=== PATIENT | female | born 1950 | race Caucasian/White ===

== ENCOUNTER 2018-05-26 06:32 | Day surgery (SDC) | payer MEDICARE, BC ==
[2018-05-26] MEDS ORDERED: Lactated Ringers 1,000 ML IV SCH (07:00)
[2018-05-26] MEDS ORDERED: fentaNYL 100 MCG/2 ML SDV ONE (07:23)
[2018-05-26] MEDS ORDERED: Propofol 200 MG/20 ML SDV ONE (07:23)
[2018-05-26] MEDS ORDERED: Ondansetron 4 MG/2 ML SDV ONE (07:23)
--- NOTE | 2018-05-26 10:21 | OR ---
DATE OF PROCEDURE: 05/26/2018 PROCEDURES: 1. EGD. 2. Colonoscopy. FINDINGS: 1. Diverticulosis. 2. No other gross abnormalities, except for maybe mild reflux at GE junction. COMPLICATIONS: None. COOK BOX FILLER: None. PREOPERATIVE DIAGNOSIS: Abdominal bloating/abdominal pain. POSTOPERATIVE DIAGNOSIS: Abdominal bloating/abdominal pain. RISKS: Risks, benefits, alternatives, and limitations including, but not limited to infection, bleeding, and perforation were explained to the patient, who wished to proceed. PROCEDURE IN DETAIL: The patient was placed in left lateral decubitus position. The EGD scope was introduced and advanced atraumatically into the second part of the duodenum. No other abnormalities were noted. The GE junction did show some mild reflux. No hiatal hernia. No gastric ulcers. Esophagus was normal. A digital rectal exam was performed next. The scope was introduced and advanced atraumatically to the ileocecal valve. The scope was brought back to the ascending, transverse, descending colon, and retroflexed. The patient did have some diverticulosis. There was no evidence of old or new blood. No masses. No polyps. The diverticulosis would be described as mild and limited to sigmoid colon. No abnormalities on retroflexion. The patient tolerated the procedure well. Mohan Patterson MD /[id number]
== END 2018-05-26 10:32 | disposition home or self-care (01) ==
LOC: JP.SDS 06:32
PROVIDERS: ATTEND Surgery
PROC: 0DJD8ZZ Inspection of Lower Intestinal Tract, Via Natural or Artificial Opening Endoscopic (ICD-10-PCS; principal; 2018-05-26)
PROC: 0DJ08ZZ Inspection of Upper Intestinal Tract, Via Natural or Artificial Opening Endoscopic (ICD-10-PCS; 2018-05-26)
DX: K57.90 Diverticulosis of intestine, part unspecified, without perforation or abscess without bleeding (principal); R10.9 Unspecified abdominal pain; R14.0 Abdominal distension (gaseous)
CPT/HCPCS: 43235; 45378; J2405; J2704; J3010; J7120

== ENCOUNTER 2021-11-13 18:23 | Emergency (ER) | payer MEDICARE, BC ==
[2021-11-13] MEDS ORDERED: Sodium Chloride 0.9% 10 ML SDV FLUSH ONE (18:50)
[2021-11-13] MEDS ORDERED: Sodium Chloride 0.9% 100 ML IV SCH (19:00)
[2021-11-13] MEDS ORDERED: Iopamidol 755 Mg/ML 100 ML Bottle IV SCH (19:00)
--- NOTE | 2021-11-13 19:04 | EDM.PDOC ---
ED HPI GENERAL MEDICAL PROBLEM - General Chief Complaint: Neuro Symptoms/Deficits Stated Complaint: DIFFICULTY SPEAKING-POSSIBLE STROKE Time Seen by Provider: 11/13/21 18:30 Source of Information: Reports: Patient, Family History Limitations: Reports: No Limitations - History of Present Illness INITIAL COMMENTS - FREE TEXT/NARRATIVE: 71-year-old female with a remote history of migraines, but no other significant medical history was visiting with her [place] at supper and suddenly had expressive aphasia. She also developed a dull headache. No other symptoms, she can ambulate without problems, no peripheral weakness, no visual changes although she is nearly blind in 1 eye. No amnesia, her only symptom if she has to think as she is speaking in the word still are not coming out completely right. She has no dysarthria. Symptoms are improving however. Onset: Sudden Duration: Hour(s): (Within the last hour) Associated Symptoms: Reports: Headaches, Other (Expressive aphasia and headache are the only symptoms) - Related Data Allergies Allergy/AdvReac Type Severity Reaction Status Date / Time aspirin Allergy Hypertensio Verified 11/13/21 18:32 [From Darvon Compound-65] n caffeine Allergy Hypertensio Verified 11/13/21 18:32 [From Darvon Compound-65] n codeine Allergy Nausea and Verified 11/13/21 18:32 Vomiting ibuprofen Allergy Stomach Verified 11/13/21 18:32 Upset lorazepam [From Ativan] Allergy Lethargy Verified 11/13/21 18:32 meperidine HCl [From Demerol] Allergy Nausea and Verified 11/13/21 18:32 Vomiting naproxen Allergy Cannot Verified 11/13/21 18:32 Remember propoxyphene HCl Allergy Hypertensio Verified 11/13/21 18:32 [From Darvon Compound-65] n wheat Allergy Airway Verified 11/13/21 18:32 Tightness Home Meds: Home Meds Calcium Carb, Citrate/Vit D3 [Calcium + D3 ER Tablet] 800 - 1,000 mg PO DAILY 05/24/18 [History] Cholecalciferol (Vitamin D3) [Cholecalciferol] 1,000 unit PO DAILY 05/24/18 [History] EPINEPHrine [Epinephrine] 0.3 ml IM ASDIRECTED PRN 05/24/18 [History] Levothyroxine Sodium 88 mcg PO DAILY 05/24/18 [History] Omeprazole 40 mg PO DAILY 11/13/21 [History] Past Medical History HEENT History: Reports: Impaired Vision, Other (See Below) Other HEENT History: wears glasses; dry eyes Cardiovascular History: Reports: Angina, Arrhythmia, Heart Murmur, High Cholesterol Gastrointestinal History: Reports: Chronic Diarrhea, Gastritis, GERD, Hemorrhoids Genitourinary History: Reports: None INBOUND SALES REPRESENTATIVE History: Reports: Other (See Below) Other INBOUND SALES REPRESENTATIVE History: 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 Musculoskeletal History: Reports: None Endocrine/Metabolic History: Reports: Hypothyroidism - Infectious Disease History Infectious Disease History: Reports: Chicken Pox, Measles - Past Surgical History HEENT Surgical History: Reports: None Cardiovascular Surgical History: Reports: None GI Surgical History: Reports: Appendectomy, Cholecystectomy, Colonoscopy Female Surgical History: Reports: Hysterectomy Endocrine Surgical History: Reports: None Musculoskeletal Surgical History: Reports: Carpal Tunnel, Shoulder Surgery Dermatological Surgical History: Reports: None Social & Family History - Tobacco Use Tobacco Use Status *Q: Never Tobacco User - Caffeine Use Caffeine Use: Reports: Tea - Recreational Drug Use Recreational Drug Use: No ED ROS GENERAL - Review of Systems Review Of Systems: See Below Constitutional: Denies: Fever, Chills, Malaise HEENT: Denies: Vision Change Respiratory: Denies: Shortness of Breath, Cough Cardiovascular: Denies: Lightheadedness, Palpitations Endocrine: Reports: No Symptoms GI/Abdominal: Reports: No Symptoms : Reports: No Symptoms Musculoskeletal: Reports: No Symptoms Skin: Reports: No Symptoms Neurological: Reports: Headache, Other. Denies: Weakness ED EXAM, GENERAL - Physical Exam Exam: See Below (Expressive aphasia) Exam Limited By: No Limitations General Appearance: Alert, No Apparent Distress Eye Exam: Bilateral Eye: EOMI, PERRL, Other (Peripheral vision is intact) Head: Atraumatic Neck: Supple, Non-Tender. No: Carotid Bruit Respiratory/Chest: No Respiratory Distress, Lungs Clear Cardiovascular: Regular Rate, Rhythm, Extra Beats (Fairly frequent ectopic beats are heard, PACs correlate on the monitor) GI/Abdominal: Normal Bowel Sounds, Soft, Non-Tender Extremities: Normal Inspection Neurological: Alert, Oriented, CN II-XII Intact, No Motor/Sensory Deficits, Other (Facial muscles are symmetric, grasp strength is symmetric, she can hold both legs up against gravity without any difficulty). No: Disoriented Psychiatric: Normal Affect, Normal Mood Skin Exam: Warm, Dry Course - Vital Signs Last Recorded V/S: Last Vital Signs Temp 97.9 F 11/13/21 18:27 Pulse 81 11/13/21 18:55 Resp 12 11/13/21 19:24 BP 161/68 H 11/13/21 19:24 Pulse Ox 97 11/13/21 19:24 - Orders/Labs/Meds Labs: Laboratory Tests 11/13/21 11/13/21 11/13/21 Range/Units 18:37 18:37 18:37 WBC 6.8 (4.5-11.0) K/uL RBC 4.04 (3.30-5.50) M/uL Hgb 12.4 (12.0-15.0) g/dL Hct 38.0 (36.0-48.0) % MCV 94 (80-98) fL MCH 31 (27-31) pg MCHC 33 (32-36) % Plt Count 203 (150-400) K/uL Neut % (Auto) 44.4 (36-66) % Lymph % (Auto) 43.1 (24-44) % Summers % (Auto) 9.9 H (2-6) % Eos % (Auto) 2.2 (2-4) % Baso % (Auto) 0.4 (0-1) % PT 10.1 (9.2-10.6) sec INR 1.0 Sodium 137 L (140-148) mmol/L Potassium 3.8 (3.6-5.2) mmol/L Chloride 103 (100-108) mmol/L Carbon Dioxide 25 (21-32) mmol/L Anion Gap 12.8 (5.0-14.0) mmol/L BUN 14 (7-18) mg/dL Creatinine 1.0 (0.6-1.0) mg/dL Est Cr Clr Drug Dosing TNP Estimated GFR (MDRD) 54 L (>60) Glucose 138 H (74-106) mg/dL Calcium 8.5 (8.5-10.1) mg/dL Total Bilirubin 0.4 (0.2-1.0) mg/dL AST 19 (15-37) U/L ALT 32 (12-78) U/L Alkaline Phosphatase 87 (46-116) U/L Total Protein 6.3 L (6.4-8.2) g/dL Albumin 3.1 L (3.4-5.0) g/dL Globulin 3.2 (2.3-3.5) g/dL Albumin/Globulin Ratio 1.0 L (1.2-2.2) Meds: Medications Discontinued Medications Generic Name Dose Route Start Last Admin Trade Name Sweta PRN Reason Stop Dose Admin Sodium Chloride 100 mls @ 3 mls/sec 11/13/21 19:00 11/13/21 19:20 Normal Saline IV 3 mls/sec ASDIRECTED GIACOMO Administration Iopamidol 100 ml 11/13/21 19:00 11/13/21 19:20 Iopamidol 755 Mg/Ml 100 Ml Bottle IV 100 ml . DIRECTED GIACOMO Administration Sodium Chloride 10 ml 11/13/21 18:50 11/13/21 18:59 Sodium Chloride 0.9% 10 Ml Sdv FLUSH 11/13/21 18:51 10 ml ONETIME ONE Administration - Re-Assessments/Exams Free Text/Narrative Re-Assessment/Exam: 11/13/21 19:04 CBC and CMP were obtained, patient was sent back for CT of the head and CT angiogram. Her symptoms were significantly improving prior to the CT. 11/13/21 19:55 IMPRESSION: CTA head: Unremarkable. No sign of occlusion or significant aneurysm. Dictated by Satinder Martínez MD @ 11/13/2021 7:49:27 PM Labs were reassuring, CT of her head was negative and CT angiogram was also normal, she still felt a little heavy in her eyes, her speech was normal. This apparently was some type of vascular or migrainous headache, she is going to take some Tylenol, rest tonight and recheck in the next 1 to 2 days if not improving. 11/13/21 23:39 Several hours after the patient left, we did get a call from the interventional neurologist from [facility] who does consultations for CRL. There was an aneurysm identified on her CT angiogram. It is stable at this time but should be taken care of on an outpatient basis in the provided a phone number to call for consultation. I attempted to call the patient's home but no one answered, I will try again in the morning. Departure - Departure Time of Disposition: 20:05 Disposition: Home, Self-Care 01 Clinical Impression: Vascular headache - Discharge Information Instructions: Migraine Headache, [id number] Referrals: Margo Heath PA-C [Primary Care Provider] - Forms: ED Department Discharge Care Plan Goals: Rest tonight, Tylenol, cool compresses to the forehead and consider rechecking in 24 to 48 hours if not improving satisfactorily. Return sooner if worsening such as weakness of an arm or leg, worsening facial weakness or speech problems. Sepsis Event Note (ED) - Evaluation Sepsis Screening Result: No Definite Risk - Focused Exam Vital Signs: Vital Signs Temp Pulse Resp BP Pulse Ox 11/13/21 19:24 12 161/68 H 97 11/13/21 18:55 81 14 149/72 H 11/13/21 18:27 97.9 F 91 18 162/67 H 98
--- NOTE | 2021-11-13 19:47 | CRLCT ---
For Patients: As a result of the Century Cures Act, medical imaging exams and procedure reports are released immediately into your electronic medical record. You may view this report before your referring provider. If you have questions, please contact your health care provider. INDICATION: Expressive aphasia. TECHNIQUE: CT head without contrast. COMPARISON: None. FINDINGS: CSF spaces: Within normal limits for age. Brain parenchyma and extra-axial spaces: The damon-white differentiation is normal. No sign of mass, hemorrhage, or midline shift. No extra-axial fluid collection. Skull base and calvarium: The visualized paranasal sinuses and mastoid air cells demonstrate no acute or significant findings. The visualized orbits are grossly unremarkable. No skull fractures. IMPRESSION: Unremarkable noncontrast head CT. No signs of acute ischemia, intracranial hemorrhage, or other significant finding. Please note that all CT scans at this facility use dose modulation, iterative reconstruction, and/or weight-based dosing when appropriate to reduce radiation dose to as low as reasonably achievable. Dictated by Satinder Martínez MD @ 11/13/2021 7:46:22 PM (Electronically Signed)
--- NOTE | 2021-11-13 19:51 | CRLCT ---
For Patients: As a result of the Century Cures Act, medical imaging exams and procedure reports are released immediately into your electronic medical record. You may view this report before your referring provider. If you have questions, please contact your health care provider. DATE: 11/13/2021 CLINICAL HISTORY: Patient with expressive aphasia. TECHNIQUE: Standard helical CT image acquisition through the intracranial circulation following intravenous administration of contrast material with bolus tracking. Multiplanar reconstructed images were performed and interpreted. COMPARISON: CT same day. FINDINGS: There is no proximal intracranial large vessel occlusion. 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 The right internal carotid artery is normal. The right middle cerebral artery and its branches are normal. The right anterior cerebral artery and its branches are normal. The left internal carotid artery is normal. The left middle cerebral artery and its branches are normal. The left anterior cerebral artery and its branches are normal. The anterior communicating artery is well visualized and appears normal. The right vertebral artery and PICA are normal. The left vertebral artery and PICA are normal. The vertebral arteries are codominant. The basilar artery is patent and appears normal. The right posterior cerebral artery is normal. The left posterior cerebral artery is normal. IMPRESSION: 1. No proximal intracranial large vessel occlusion. 2. 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 Telehealth consultation with [facility]`s Neurointerventional team for management of this aneurysm can be arranged by calling . Findings were discussed with Dr. Sanders at 11:15 PM. Please note that all CT scans at this facility use dose modulation, iterative reconstruction, and/or weight-based dosing when appropriate to reduce radiation dose to as low as reasonably achievable. Dictated by Roderick Saeed MD @ 11/13/2021 11:18:03 PM (Electronically Signed)
== END 2021-11-13 20:11 | disposition home or self-care (01) ==
LOC: JP.ED 18:23
DX: G44.1 Vascular headache, not elsewhere classified (principal); E03.9 Hypothyroidism, unspecified; K21.9 Gastro-esophageal reflux disease without esophagitis; Z88.5 Allergy status to narcotic agent; Z91.018 Allergy to other foods; Z79.899 Other long term (current) drug therapy
CPT/HCPCS: 36415; 70450; 70496; 80053; 85025; 85610; 99284; Q9967

== ENCOUNTER 2023-07-08 06:23 | Day surgery (SDC) | payer MEDICARE, BC ==
[~2023-07-08 06:23] MED LIST: Propofol 200 MG/20 ML SDV ONE; fentaNYL 100 MCG/2 ML SDV ONE
[2023-07-08] MEDS ORDERED: Sodium Chloride 0.9% 1,000 ML IV SCH (07:00)
== END 2023-07-08 09:30 | disposition home or self-care (01) ==
LOC: JP.SDS 06:23
PROVIDERS: ATTEND Surgery
DX: K57.30 Diverticulosis of large intestine without perforation or abscess without bleeding (principal); K62.89 Other specified diseases of anus and rectum; K52.9 Noninfective gastroenteritis and colitis, unspecified; E78.5 Hyperlipidemia, unspecified; I67.1 Cerebral aneurysm, nonruptured; E03.9 Hypothyroidism, unspecified
CPT/HCPCS: 45380; J2704; J3010; J7030